=== PATIENT | female | born 1975 | race Caucasian/White ===

== ENCOUNTER 2016-06-27 08:18 | Emergency (ER) ==
[2016-06-27 08:39] LABS: URINE CULTURE NEEDED? NO; URINE MICRO REVIEW NEEDED? NO; URINE SOURCE CLEAN CATCH
[2016-06-27 08:39] LABS: MANUAL DIFF NEEDED? NO
[2016-06-27 08:46] LABS: EOS# 0.71 X1000 (0.0-0.7); EOS% 5.8 % (0.0-10.0); HEMATOCRIT 48.7 % (37.0-47.0); HEMOGLOBIN 16.3 g/dL (12.0-16.0); IMM GRAN# 0.03 X1000 (0.0-0.04); IMM GRAN% 0.2 % (0.0-0.5); LYMPH# 3.12 X1000 (1.2-3.4); LYMPH% 25.4 % (20.5-51.1); MCH 30.5 PG (27-31); MCHC 33.5 g/dL (33-37); MCV 91.2 FL (81-99); MONO# 0.64 X1000 (0.11-0.59); MONO% 5.2 % (1.7-9.3); MPV 10.8 FL (7.4-10.4); NEUT% 62.4 % (42.2-75.2); PLT 358 X1000 (130-400); RBC 5.34 XMIL (4.2-5.4)
[2016-06-27 08:48] LABS: BILIRUBIN URINE NEGATIVE (NEGATIVE); BLOOD URINE SMALL (NEGATIVE); COLOR YELLOW; GLUCOSE URINE NEGATIVE (NEGATIVE); LEUKOCYTES URINE NEGATIVE (NEGATIVE); NITRITE URINE NEGATIVE (NEGATIVE); PH URINE 5.5; PROTEIN URINE NEGATIVE (NEGATIVE); SP GRAVITY URINE 1.007; TURBIDITY URINE CLEAR (CLEAR); UR EPITHELIAL CELLS <10 /HPF (<10); URINE BACTERIA NEGATIVE /HPF; URINE RBC <10 /HPF (<10); URINE WBC <10 /HPF (<10); UROBILINOGEN URINE NORMAL (NORMAL)
[2016-06-27 09:08] LABS: AGAP 13; ALBUMIN 4.3 g/dL (3.5-5.0); ALKALINE PHOSPHATASE 107 U/L (32-104); AMYLASE 64 U/L (20-200); BUN 7 mg/dL (8-22); CALCIUM 9.3 mg/dL (8.8-10.2); CHLORIDE 99 mmol/L (98-107); COSMO 273; GOT 13 U/L (10-30); GPT 11 U/L (10-36); LIPASE 26 U/L (13-60); POTASSIUM 3.7 mmol/L (3.5-5.1); SODIUM 137 mmol/L (136-145); TCO2 25 mmol/L (25-35); TOTAL BILIRUBIN 0.26 mg/dL (0.20-1.00); TOTAL PROTEIN 7.8 g/dL (6.3-8.3)
[2016-06-27] MEDS ORDERED: NS 1,000 ML IV ONE (10:19)
--- NOTE | 2016-06-27 10:20 | PROVIDER DOCUMENTATION ---
HPI-Abdominal Pain/GI Problem - General Chief Complaint: Abdominal Pain Stated Complaint: DIARRHEA,ABD PAIN Time Seen by Provider: 06/27/16 10:05 Source: patient Allergies/Adverse Reactions: Patient Allergies Allergy/AdvReac Type Severity Reaction Status Date / Time No Known Allergies Allergy Unverified 06/27/16 10:15 Home Medications: Home Medication List Medication Instructions Recorded Confirmed Last Taken Type Ciprofloxacin HCl [Cipro] 500 mg PO BID #14 tablet 06/27/16 Unknown Rx Metronidazole 500 mg PO TID #21 tablet 06/27/16 Unknown Rx Promethazine [Phenergan] 25 mg PO Q6H PRN PRN #20 tablet 06/27/16 Unknown Rx - History of Present Illness-ABD Nature of Presenting Problems: 40 y/o WF c/o abd. pain x 3 weeks, worse in last 2 days. Pt states accompanied with nausea and diarrhea. Denies any blood in diarrhea, but states now up to 5x daily. Reports abd. pain in epigastric with no radiation. Denies any hx of abd. problems in the past. Review of Systems - Adult - REVIEW OF SYSTEMS - ADULT Constitutional: reports: no symptoms reported. denies: chills, fever Eyes: reports: no symptoms reported. denies: blurred vision, double vision Ears, Nose, Mouth & Throat: reports: no symptoms reported. denies: ear pain, nose pain Cardiovascular: reports: no symptoms reported. denies: chest pain, palpitations Respiratory: reports: no symptoms reported. denies: dyspnea on exertion, shortness of breath Gastrointestinal: reports: see HPI, abdominal pain, diarrhea, nausea. denies: constipation, rectal bleeding, vomiting Genitourinary: reports: no symptoms reported. denies: dysuria, frequency, flank pain, hematuria Musculoskeletal: reports: no symptoms reported. denies: back pain, joint pain, joint swelling Integumentary: reports: no symptoms reported. denies: nail changes, rash Neurological: reports: no symptoms reported. denies: numbness, paresthesia Psychiatric: reports: no symptoms reported Endocrine: reports: no symptoms reported. denies: cold intolerance, heat intolerance Hematologic/Lymphatic: reports: no symptoms reported. denies: easy bruising, prolonged bleeding Allergic/Immunologic: reports: no symptoms reported All Other Systems: Reviewed and Negative Past History - Adult - PAST MEDICAL HISTORY-ADULT Review of Records: reports: Nursing Assessment Review, Medications Reviewed - SOCIAL HISTORY Smoking: cigarettes, less than 1 pack/day Provider spent 3-5 mins advising pt. on dangers of tobacco.: Discussed manners to quit use, and f/u contacts for add'l counseling. Physical Exam-General - PHYSICAL EXAM-ADULT Initial Vital Signs Reviewed: Yes - CONSTITUTIONAL General Appearance: alert, mild distress - EYES Eyes: pink conjunctivae - HEAD, EARS, NOSE, MOUTH & THROAT HENMT: normocephalic/atraumatic, moist mucous membranes - NECK Neck: normal inspection - RESPIRATORY Respiratory: lungs clear, normal breath sounds. negative: crackles, rales, rhonchi, stridor, wheezing - CARDIOVASCULAR Cardiovascular: regular rate, rhythm. negative: bradycardia, tachycardia - GASTROINTESTINAL (ABDOMEN) Abdominal Exam: normal bowel sounds, soft, tenderness (epigastric, LUQ, LLQ). negative: distended, guarding, rigid, rebound, McBurney's point tenderness, Ardon's sign - MUSCULOSKELETAL Back Exam: no CVA tenderness Extremity: normal gait - SKIN Integumentary: normal color, normal turgor, warm/dry - NEUROLOGIC Neurologic: negative: aphasia - PSYCHIATRIC Psych/Mental Status: normal mood/affect, normal thought content, normal thought process, oriented x 3 Progress - PLAN OF CARE/RESULTS Progress/Plan/Lab Results: Laboratory Tests 06/27/16 06/27/16 06/27/16 08:26 08:26 08:30 WBC 12.26 H RBC 5.34 Hgb 16.3 H Hct 48.7 H MCV 91.2 MCH 30.5 MCHC 33.5 RDW Std Deviation 14.3 Plt Count 358 MPV 10.8 H Immature Gran % (Auto) 0.2 Neut % (Auto) 62.4 Lymph % (Auto) 25.4 [place] % (Auto) 5.2 Eos % (Auto) 5.8 Baso % (Auto) 1.0 H Immature Gran # (Auto) 0.03 Neut # (Auto) 7.64 H Lymph # (Auto) 3.12 [place] # (Auto) 0.64 H Eos # (Auto) 0.71 H Baso # (Auto) 0.12 Sodium 137 Potassium 3.7 Chloride 99 Carbon Dioxide 25 Anion Gap 13 BUN 7 L Creatinine 0.8 Estimated GFR/1.73 m2 > 60 BUN/Creatinine Ratio 9 Glucose 112 H Calculated Osmolality 273 Calcium 9.3 Total Bilirubin 0.26 AST 13 ALT 11 Alkaline Phosphatase 107 H Total Protein 7.8 Albumin 4.3 Globulin 3.5 Albumin/Globulin Ratio 1.2 Amylase 64 Lipase 26 Urine Source CLEAN CATCH Urine Color YELLOW Urine Turbidity CLEAR Urine pH 5.5 Ur Specific [place] 1.007 Urine Protein NEGATIVE Ur Glucose (Stick) NEGATIVE Ur Ketones (Stick) NEGATIVE Urine Blood SMALL A Urine Nitrite NEGATIVE Urine Bilirubin NEGATIVE Urobilinogen Dipstick NORMAL Urine Leukocytes NEGATIVE Urine WBC (Auto) <10 Urine RBC (Auto) <10 U Epithel Cells (Auto) <10 Urine Bacteria (Auto) NEGATIVE Orders Category Date Time Status ED: Urine Bedside ORDERED Care 06/27/16 08:[address] ABD/PELVIS W/ IV CONT ONLY [CT] Stat Exams 06/27/16 10:19 Taken AMYLASE [CHEM] Stat Lab 06/27/16 08:26 Completed CBC WITH ELECTRONIC DIFF [HEME] Stat Lab 06/27/16 08:26 Completed COMPREHENSIVE METABOLIC PANEL [CHEM] Stat Lab 06/27/16 08:26 Completed LIPASE [CHEM] Stat Lab 06/27/16 08:26 Completed URINALYSIS W/POSS RFLX CULT [URINALYSIS] Stat Lab 06/27/16 08:30 Completed 0.9% Sodium Chloride Inj [Ns] 1,000 ml Med 06/27/16 10:19 Discontinued IV 999 mls/hr Vital Signs Temp Pulse Resp BP Pulse Ox 06/27/16 11:46 98.4 F 71 17 131/78 100 06/27/16 08:22 97.7 F 93 H 18 157/109 100 No Known Allergies Allergy (Unverified 06/27/16 10:15) No Home Medications 06/27/16 I&O 06/26/16 06/27/16 06/28/16 06:59 06:59 06:59 Output Total 60 Balance -60 Laboratory 06/27/16 06/27/16 06/27/16 08:30 08:26 08:26 WBC 12.26 H RBC 5.34 Hgb 16.3 H Hct 48.7 H MCV 91.2 MCH 30.5 MCHC 33.5 RDW Std Deviation 14.3 Plt Count 358 MPV 10.8 H Immature Gran % (Auto) 0.2 Neut % (Auto) 62.4 Lymph % (Auto) 25.4 [place] % (Auto) 5.2 Eos % (Auto) 5.8 Baso % (Auto) 1.0 H Immature Gran # (Auto) 0.03 Neut # (Auto) 7.64 H Lymph # (Auto) 3.12 [place] # (Auto) 0.64 H Eos # (Auto) 0.71 H Baso # (Auto) 0.12 Sodium 137 Potassium 3.7 Chloride 99 Carbon Dioxide 25 Anion Gap 13 BUN 7 L Creatinine 0.8 Estimated GFR/1.73 m2 > 60 BUN/Creatinine Ratio 9 Glucose 112 H Calculated Osmolality 273 Calcium 9.3 Total Bilirubin 0.26 AST 13 ALT 11 Alkaline Phosphatase 107 H Total Protein 7.8 Albumin 4.3 Globulin 3.5 Albumin/Globulin Ratio 1.2 Amylase 64 Lipase 26 Urine Source CLEAN CATCH Urine Color YELLOW Urine Turbidity CLEAR Urine pH 5.5 Ur Specific [place] 1.007 Urine Protein NEGATIVE Ur Glucose (Stick) NEGATIVE Ur Ketones (Stick) NEGATIVE Urine Blood SMALL A Urine Nitrite NEGATIVE Urine Bilirubin NEGATIVE Urobilinogen Dipstick NORMAL Urine Leukocytes NEGATIVE Urine WBC (Auto) <10 Urine RBC (Auto) <10 U Epithel Cells (Auto) <10 Urine Bacteria (Auto) NEGATIVE Discussed pt with Dr. Couch; he agreed with tx plan and d/c home with cipro and flagyl PO. Discussed results and f/u with pt. - CT/MRI 1 CT Study: Abdomen, Pelvis Impression: See EMR Report (generalized mild colitis; no abscess; no free air. -per Dr. Vuong) Departure - Departure Time of Disposition Order: 12:10 DIAGNOSIS: Colitis Disposition: HOME 01 Certified Medical Emergency: Emergent Condition: Stable Additional Instructions: Take medications as directed. Drink plenty of clear fluids. Follow up with specialist for further management. ED Follow Up Instructions: You have been treated by a care provider in the Emergency Department. These instructions are being provided to you so you can have an understanding of how to care for yourself upon discharge. Upon discharge from the Emergency Department, you are responsible for making arrangements for follow-up care by a physician of your choice. Take all prescribed medications as directed. Return to the Emergency Department immediately for any new or worsening symptoms. You may call the Physician Referral phone number at [phone] to obtain a list of Physicians who are taking new patients. Prescriptions: Ciprofloxacin HCl [Cipro] 500 mg PO BID #14 tablet Metronidazole 500 mg PO TID #21 tablet Promethazine [Phenergan] 25 mg PO Q6H PRN PRN #20 tablet PRN Reason: Nausea Referrals: Haley Gonzalez MD [Primary Care Provider] - Brandan Avina MD [STAFF PHYSICIAN] - Attestation - Physician/ CLEO Attestation Patient care was provided by Advanced Practice Provider:: Yes Advanced Practice Provider:: Cindi Tavares Advanced Practice Provider documentation review:: The Mid-level provider documentation, treatment plan and medical decision making was reviewed by the physician who agrees with all treatment and medical decision making by the MLP.
[2016-06-27 11:47] VITALS: BP 131/78
--- NOTE | 2016-06-27 12:24 | Diag Imaging Result Document ---
PROCEDURE NAME: CT ABD/PELVIS W/ IV CONT ONLY - 06/27/2016 CT ABDOMEN AND PELVIS WITH IV CONTRAST ONLY: Exam performed with intravenous contrast only per request of the referring provider. A dose-reduction protocol was used. COMPARISON: No comparison exam. FINDINGS: The visualized lung bases appear clear. There are no substantial abnormalities of the liver, spleen, adrenal glands, or pancreas identified. The gallbladder is partially contracted but there are no calcified gallstones or pericholecystic inflammatory changes identified. The bilateral kidneys enhance homogeneously. There is no hydronephrosis. There are no substantially enlarged lymph nodes identified. There is no evidence of bowel obstruction. What appears to represent the appendix does not appear inflamed. There is mild wall thickening along much of the colon, most prominent distal to the hepatic flexure. There is some retained fluid in the colon. These findings are suspicious for mild colitis. There is no abscess identified. There is no free air. There is a tiny fat- containing umbilical hernia. There is no bowel-containing hernia seen. Images of pelvis show no discrete mass or fluid collection. There is no substantial free fluid. IMPRESSION: 1. Generalized mild colitis. No abscess. No free air. 2. No bowel obstruction. No evidence of appendicitis.
== END 2016-06-27 12:43 | disposition home or self-care (01) ==
LOC: ED 08:18
DX: K52.9 Noninfective gastroenteritis and colitis, unspecified (principal); R10.13 Epigastric pain; R10.12 Left upper quadrant pain; R10.32 Left lower quadrant pain; R11.0 Nausea; R19.7 Diarrhea, unspecified; F17.210 Nicotine dependence, cigarettes, uncomplicated; Z71.6 Tobacco abuse counseling
CPT/HCPCS: 74177; 80053; 81001; 82150; 83690; 85025; J7030; Q9967